=== PATIENT | female | born 1980 | race American Indian/Alaskan Native ===

== ENCOUNTER 2017-01-13 22:52 | Observation (INO) | payer BC ==
[2017-01-13] MEDS ORDERED: Aspirin 325 mg EC Tablets PO STA (23:38)
[2017-01-13] MEDS ORDERED: Aspirin 325 mg EC Tablets PO ONE (23:49)
[2017-01-14 00:20] LABS: BASO # 0.1 K/uL (0.0-0.2); BASO % 0.7 % (0.0-2.0); EOS # 0.1 K/uL (0.0-0.7); HEMATOCRIT 37.8 % (34.0-47.0); LYMPH # 2.5 K/uL (1.0-4.3); LYMPH % 28.4 % (20.0-40.0); MEAN CELL VOLUME 82.9 fL (81.0-99.0); MEAN CORPUSCULAR HEMOGLOBIN 27.2 pg (27.0-31.0); MEAN CORPUSCULAR HGB CONC 32.8 g/dL (33.0-37.0); MEAN PLATELET VOLUME 7.7 fL (7.2-11.7); MONO # 0.7 K/uL (0.0-0.8); MONO % 7.8 % (0.0-10.0); RED CELL DISTRIBUTION WIDTH 14.4 % (11.5-14.5); WHITE BLOOD COUNT 8.9 K/uL (4.8-10.8)
[2017-01-14 00:27] LABS: RBC URINE 9 /hpf (0-3); URINE BACTERIA OCC (<OCC); URINE BILIRUBIN NEGATIVE (NEGATIVE); URINE COLOR Yellow (YELLOW); URINE GLUCOSE (UA) NORMAL (Normal); URINE KETONE NEGATIVE (NEGATIVE); URINE PROTEIN NEGATIVE (NEGATIVE); URINE UROBILINOGEN NORMAL mg/dL (0.2-1.0); WBC URINE 4 /hpf (0-5)
--- NOTE | 2017-01-14 00:29 | C.PDOC ---
History Of Present Illness 36 year old female presents to the ED with complaints of vague dizziness, palpitations, and left arm discomfort since this afternoon. Patient notes she was seen in the ED for similar symptoms in March 2012 and denies cardiac history , chest pain, or any other complaints at this time. Time Seen by Provider: 01/13/17 23:33 Chief Complaint (Nursing): Dizziness/Lightheaded History Per: Patient History/Exam Limitations: no limitations Onset/Duration Of Symptoms: Hrs Current Symptoms Are (Timing): Still Present Seizure Or Post-ictal Symptoms: None Fall Associated With With Symptoms: No Severity: Mild Past Medical History Reviewed: Historical Data, Nursing Documentation, Vital Signs Vital Signs: Last Vital Signs Temp 97.9 F 01/14/17 16:04 Pulse 66 01/14/17 16:04 Resp 20 01/14/17 16:04 BP 108/71 01/14/17 16:04 Pulse Ox 94 L 01/14/17 16:04 - Medical History PMH: No Chronic Diseases Family History: States: Unknown Family Hx - Social History Hx Alcohol Use: No Hx Substance Use: No - Immunization History Hx Tetanus Toxoid Vaccination: No Hx Influenza Vaccination: No Hx Pneumococcal Vaccination: No Review Of Systems Except As Marked, All Systems Reviewed And Found Negative. Constitutional: Negative for: Fever, Chills Cardiovascular: Positive for: Palpitations. Negative for: Chest Pain Gastrointestinal: Negative for: Nausea, Vomiting Musculoskeletal: Positive for: Arm Pain (+Left arm discomfort) Neurological: Positive for: Dizziness. Negative for: Weakness, Numbness Physical Exam - Physical Exam Appears: Non-toxic, No Acute Distress, Other (+Obese) Skin: Normal Color, Warm, Dry Head: Atraumatic, Normacephalic Eye(s): bilateral: Normal Inspection Oral Mucosa: Moist Neck: Supple Chest: Symmetrical, No Deformity Cardiovascular: Rhythm Regular Respiratory: Normal Breath Sounds, No Accessory Muscle Use, No Rales, No Rhonchi , No Wheezing Extremity: Normal ROM, No Tenderness, No Deformity Neurological/Psych: Oriented x3, Normal Speech, Normal Cognition ED Course And Treatment - Laboratory Results Result Diagrams: 01/14/17 00:16 01/14/17 00:16 Lab Interpretation: Normal (bnp neg.) Urine POC: Negative ECG: Interpreted By Me ECG Rhythm: Sinus Rhythm ECG Interpretation: Normal Rate From EC O2 Sat by Pulse Oximetry: 100 (Nasal cannula ) Pulse Ox Interpretation: Normal - Radiology CXR: Interpreted by Me CXR Interpretation: Yes: Heart Size (+ megaly) Progress Note: CXR, EKG, Blood work, and Urinalysis ordered and reviewed. Patient treated with Aspirin and Lovenox. Reevaluation Time: 01:02 Reassessment Condition: Improved (asymptomatic.) - Physician Consult Information Outcome Of Conversation: 0100: d/w Dr. Pita Dooley- Medicine Staff Occupational Therapist- ok to Tele obs. Medical Decision Making Medical Decision Making: considering pt's obesity, vague chest discomforts and L arm radiation, cardiomegaly on CXR and family h/o mother's sudden @ pt's age 9 for ? reason, may be anginal equivalent- Lovenox SQ and Cardiac eval Disposition Doctor Will See Patient In The: Hospital Counseled Patient/Family Regarding: Studies Performed, Diagnosis - Disposition Disposition: HOSPITALIZED Disposition Time: 01:00 Condition: GOOD - Clinical Impression Clinical Impression: Chest discomfort, Dizziness - Scribe Statement The provider has reviewed the documentation as recorded by the Scribe Mariana Arias. Provider Attestation: All medical record entries made by the Scribe were at my direction and personally dictated by me. I have reviewed the chart and agree that the record accurately reflects my personal performance of the history, physical exam, medical decision making, and the department course for this patient. I have also personally directed, reviewed, and agree with the discharge instructions and disposition.
[2017-01-14 00:41] LABS: CHLORIDE 101 mmol/L (98-107); POTASSIUM 4.1 mmol/L (3.6-5.2); SODIUM 140 mmol/L (132-148)
[2017-01-14 00:41] LABS: URINE BLOOD 1+ (NEGATIVE); URINE LEUKOCYTE ESTERASE TRACE Leu/uL (Negative)
[2017-01-14 00:43] LABS: BILIRUBIN,TOTAL 0.4 mg/dL (0.2-1.3); GFR AFRICAN-AMERICAN > 60
[2017-01-14 00:44] LABS: ALB/GLOB RATIO 1.2 (1.0-2.1); ALKALINE PHOSPHATASE 91 U/L (38-126); ALT/SGPT 31 U/L (9-52); AST/SGOT 42 U/L (14-36); BLOOD UREA NITROGEN 10 mg/dL (7-17); CALCIUM 8.7 mg/dl (8.6-10.4); CARBON DIOXIDE 28 mmol/L (22-30); GLUCOSE,RANDOM 88 mg/dL (65-105); TOTAL PROTEIN 7.9 g/dL (6.3-8.3)
[2017-01-14 00:45] LABS: ALCOHOL SERUM < 10 mg/dl (0-10)
[2017-01-14] MEDS ORDERED: Enoxaparin 40 mg Syringe SC STA (00:56)
[2017-01-14] MEDS ORDERED: Enoxaparin 40 mg Syringe ONE (02:10)
[2017-01-14] MEDS ORDERED: Enoxaparin 60 mg Syringe ONE (02:10)
[2017-01-14] MEDS ORDERED: Albuterol-Ipratrop 3 mg / 0.5 (3 ml) UD ONE (02:44)
[2017-01-14] MEDS: Albuterol-Ipratrop 3 mg / 0.5 (3 ml) UD INH SCH ×3 (02:50→13:37)
[2017-01-14] MEDS ORDERED: Pantoprazole 40 mg EC Tab PO SCH (10:00)
--- NOTE | 2017-01-14 11:17 | RAD ---
HISTORY: SOB COMPARISON: None available. TECHNIQUE: Chest, one view. FINDINGS: Examination limited by habitus and hypoinflation. LUNGS: No focal consolidation. Please note that chest x-ray has limited sensitivity for the detection of pulmonary masses. PLEURA: No significant pleural effusion identified. No definite pneumothorax . CARDIOVASCULAR: The cardiomediastinal silhouette appears within normal limits of size. OSSEOUS STRUCTURES: No acute osseous abnormality identified. VISUALIZED UPPER ABDOMEN: Unremarkable. OTHER FINDINGS: None. IMPRESSION: No focal consolidation, significant pleural effusion, or definite pneumothorax identified.
--- NOTE | 2017-01-14 11:53 | CP.PCM.PN ---
<Nhung Ferro - Last Filed: 01/14/17 15:12> Subjective - Date & Time of Evaluation Date of Evaluation: 01/14/17 Time of Evaluation: 11:46 - Subjective Subjective: Medicine Progress Note- Dr Amalia Dooley's service Patient seen and examined. Patient states that she came to the hospital yesterday because while she was at work she felt lightheaded and felt tingling and numbness in her lateral right hand. She states that she became concerned about the numbness so she came to the ED. Per patient, she has had this numbness in her pinky finger before. She was standing at the time of the event. Denies chest pain, shortness of breath, headache, change in vision, focal weakness, syncope, memory loss, tinnitus, sore throat, recent illness, new medications, swelling, back pain, recent trauma, palpitations, abdominal pain. Objective - Vital Signs/Intake and Output Vital Signs (last 24 hours): Temp Pulse Resp BP Pulse Ox 98.5 F 68 17 111/72 100 01/14/17 07:10 01/14/17 08:00 01/14/17 07:10 01/14/17 07:10 01/14/17 07:10 - Medications Medications: Current Medications Albuterol/Ipratropium (Duoneb 3 Mg/0.5 Mg (3 Ml) Ud) 3 ml INH RQ6 [facility] Last Admin: 01/14/17 07:52 Dose: 3 ml Aspirin (Aspirin) 325 mg PO DAILY [facility] Last Admin: 01/14/17 09:34 Dose: 325 mg Clopidogrel Bisulfate (Plavix) 75 mg PO DAILY [facility] Last Admin: 01/14/17 09:34 Dose: 75 mg Enoxaparin Sodium (Lovenox) 40 mg SC DAILY [facility] Ondansetron HCl (Zofran Inj) 4 mg IVP Q6 PRN PRN Reason: Nausea/Vomiting Pantoprazole Sodium (Protonix Ec Tab) 40 mg PO DAILY [facility] Last Admin: 01/14/17 09:34 Dose: 40 mg Pneumococcal Polyvalent Vaccine (Pneumovax 23 Vaccine) 0.5 ml IM .ONCE ONE Stop: 01/17/17 14:01 - Constitutional Appears: Non-toxic, No Acute Distress - Head Exam Head Exam: ATRAUMATIC, NORMOCEPHALIC - Eye Exam Eye Exam: EOMI, Normal appearance - ENT Exam ENT Exam: Mucous Membranes Moist - Neck Exam Neck Exam: Normal Inspection - Respiratory Exam Respiratory Exam: Clear to Ausculation Bilateral, NORMAL BREATHING PATTERN. absent: Rales, Rhonchi, Wheezes, Respiratory Distress - Cardiovascular Exam Cardiovascular Exam: REGULAR RHYTHM, +S1, +S2 - GI/Abdominal Exam GI & Abdominal Exam: Soft, Normal Bowel Sounds. absent: Firm, Guarding, Rigid, Tenderness - Extremities Exam Extremities Exam: Normal Inspection. absent: Pedal Edema - Back Exam Back Exam: NORMAL INSPECTION - Neurological Exam Neurological Exam: Alert, Awake, CN II-XII Intact, Oriented x3 Neuro motor strength exam: Left Upper Extremity: 5, Right Upper Extremity: 5, Left Lower Extremity: 5, Right Lower Extremity: 5 Additional comments: Decreased sensation to touch of left pinky - Psychiatric Exam Psychiatric exam: Normal Affect, Normal Mood - Skin Skin Exam: Dry, Intact, Normal Color, Warm Assessment and Plan - Assessment and Plan (Free Text) Assessment: (1) Numbness ROMIs negative x2 f/u 3rd SAROJ No EKG changes Consulted Dr Pedersen cardio for recommendations Consulted Dr Ziegler Neuro for recommendations f/u Head CT without contrast HgA1C 5.9 TSH 0.89 ASA 325mg PO daily, Plavix 75mg PO daily (2) HLD TG 85 Cholesterol 226 LDL 149 HDL 33 Crestor 10mg PO HS (3) Hx asthma Duonebs 3ml INH q6h Controlled (4) Prophylactic measures Protonix 40mg PO daily Lovenox 40mg SC daily SCDs Discussed with attending. <Ashlee Dooley S - Last Filed: 05/06/17 22:47> Objective - Vital Signs/Intake and Output Vital Signs (last 24 hours): Temp Pulse Resp BP Pulse Ox 97.9 F 66 20 108/71 100 01/14/17 16:04 01/14/17 16:04 01/14/17 16:04 01/14/17 16:04 01/19/17 18:25 Assessment and Plan (1) Chest discomfort Status: Acute (2) Dizziness Status: Acute Attending/Attestation - Attestation I have personally seen and examined this patient.: Yes I have fully participated in the care of the patient.: Yes Notes (Text): Admitted with the numbness seen and discussed with the staff and resident management as discussed
[2017-01-14 14:39] LABS: THYROID STIMULATING HORMONE 0.89 mIU/L (0.46-4.68)
[2017-01-14 16:05] VITALS: BP 108/71; PULSE 66; RESP 20; TEMP 97.9
--- NOTE | 2017-01-14 16:37 | CT ---
PROCEDURE: CT HEAD WITHOUT CONTRAST. HISTORY: numbness/tingling COMPARISON: None available. TECHNIQUE: Axial computed tomography images were obtained through the head/brain without intravenous contrast. Radiation dose: Total exam DLP = 1042.96 mGy-cm. This CT exam was performed using one or more of the following dose reduction techniques: Automated exposure control, adjustment of the mA and/or kV according to patient size, and/or use of iterative reconstruction technique. FINDINGS: HEMORRHAGE: No intracranial hemorrhage. BRAIN: No mass effect or edema. No atrophy or chronic microvascular ischemic changes. VENTRICLES: Unremarkable. No hydrocephalus. CALVARIUM: Unremarkable. PARANASAL SINUSES: Unremarkable as visualized. No significant inflammatory changes. MASTOID AIR CELLS: Unremarkable as visualized. No inflammatory changes. OTHER FINDINGS: None. IMPRESSION: Normal CT of the Head. No intracranial mass, hemorrhage or evidence of acute infarct.
--- NOTE | 2017-01-14 16:49 | CARD ---
APPROVED REPORT EKG Measurement Heart [id number] <Conclusion> Normal sinus rhythm Normal ECG
--- NOTE | 2017-01-14 18:07 | CP.PCM.HP ---
History of Present Illness - History of Present Illness History of Present Illness: 36 years old female patient presented with complaints of patient, left arm discomfort, dizziness. Patient had similar symptoms about 5 yesrs back no Chest pain, palpitations, shortness of breath No leg swelling in ED, blood workup, ekg, CXR done, started on aspirin, lovenox admitted and kept on telemetry Present on Admission - Present on Admission Any Indicators Present on Admission: No Past Patient History - Past Medical History & Family History Past Medical History?: Yes - Past Social History Smoking Status: Never Smoked - CARDIAC Hx Cardiac Disorders: No - PULMONARY Hx Respiratory Disorders: Yes Hx Asthma: Yes - NEUROLOGICAL Hx Neurological Disorder: No - HEENT Hx HEENT Problems: No - RENAL Hx Chronic Kidney Disease: No - ENDOCRINE/METABOLIC Hx Endocrine Disorders: No - HEMATOLOGICAL/ONCOLOGICAL Hx Blood Disorders: No - INTEGUMENTARY Hx Dermatological Problems: No - MUSCULOSKELETAL/RHEUMATOLOGICAL Hx Musculoskeletal Disorders: No Hx Falls: No - GASTROINTESTINAL Hx Gastrointestinal Disorders: No - GENITOURINARY/GYNECOLOGICAL Hx Genitourinary Disorders: No - PSYCHIATRIC Hx Psychophysiologic Disorder: No Hx Substance Use: No - SURGICAL HISTORY Hx Surgeries: Yes Hx Section: Yes Other/Comment: Claimed had Endometriosis and had surgery done a long time ago. that she can't remember what the name of the surgery was - ANESTHESIA Hx Anesthesia: Yes Hx Anesthesia Reactions: No Hx Malignant Hyperthermia: No Has any member of the family had a problem w/ anesthesia?: No Meds Allergies/Adverse Reactions: Allergies Allergy/AdvReac Type Severity Reaction Status Date / Time No Known Allergies Allergy Verified 01/14/17 03:43 Physical Exam - Constitutional Appears: Well - Head Exam Head Exam: ATRAUMATIC, NORMAL INSPECTION, NORMOCEPHALIC - Eye Exam Eye Exam: EOMI, Normal appearance, PERRL Pupil Exam: NORMAL ACCOMODATION, PERRL - ENT Exam ENT Exam: Mucous Membranes Moist, Normal Exam - Neck Exam Neck exam: Positive for: Normal Inspection - Respiratory Exam Respiratory Exam: Decreased Breath Sounds - Cardiovascular Exam Cardiovascular Exam: REGULAR RHYTHM, +S1, +S2 - GI/Abdominal Exam GI & Abdominal Exam: Diminished Bowel Sounds, Soft - Rectal Exam Rectal Exam: Deferred Results - Vital Signs Recent Vital Signs: Last Vital Signs Temp 97.9 F 01/14/17 16:04 Pulse 66 01/14/17 16:04 Resp 20 01/14/17 16:04 BP 108/71 01/14/17 16:04 Pulse Ox 94 L 01/14/17 16:04 - Labs Result Diagrams: 01/14/17 00:16 01/14/17 00:16 Labs: Laboratory Results - last 24 hr 01/14/17 01/14/17 08:17 13:49 Hemoglobin A1c 5.9 Total Creatine Kinase 617 H CK-MB (Mass) 0.46 Troponin I, Quant < 0.0120 Triglycerides 85 Cholesterol 226 H LDL Cholesterol Direct 149 H HDL Cholesterol 33 TSH 3rd Generation 0.89 Assessment & Plan (1) Chest discomfort Status: Acute (2) Dizziness Status: Acute - Assessment and Plan (Free Text) Plan: labs and meds reviewed telemetry cardio consult Dr Ziegler CT head w/o contrast noted duoneb lovenox aspirin clopidogrel zofran
--- NOTE | 2017-01-14 20:24 | CON ---
DATE: 01/14/2017 HISTORY OF PRESENT ILLNESS: A 36-year-old black female with past medical history of asthma, came her e with the complaint of dizziness, palpitations, left arm discomfort and numbness of the left hand. No headache, no neck pain, no weakness, no dizziness, no double vision. I was called to evaluate the patient. PAST MEDICAL HISTORY: Asthma. SOCIAL HISTORY: Does not smoke and does not drink. REVIEW OF SYSTEMS: A 10-point review of system was negative except as noted above. PHYSICAL EXAMINATION: VITAL SIGNS: Blood pressure 116/77. HEENT: Normocephalic and atraumatic. NECK: Supple. NEUROLOGIC: Alert, awake, oriented x 3. No aphasia. Cranial nerves II through XII were tested. Pu pils reactive. EOMs intact. Visual mosley full. No facial asymmetry. Tongue midline. Motor exami nation: Moves all the extremities equally. Tone normal. Deep tendon reflexes 1+. Both plantars ar e downgoing. Sensory appears intact. Cerebellar, gait normal. IMPRESSION: Lightheadedness and presyncopal episode with dizziness. CAT scan of the head was done, which was reported negative. LABORATORY: WBC 8.9, hemoglobin 12.4, hematocrit 37.8, platelets 327. Sodium 140, potassium 4.1, ch loride 101, CO2 of 28, glucose 88, BUN 10, creatinine 0.8. PLAN: Continue present medications, aspirin. We will follow up. Levar Ziegler MD cc: [id number] TT: 01/14/2017 20:23:35 Confirmation # [id number] Dictation # [id number] brandy
[2017-01-14] MEDS ORDERED: Enoxaparin 40 mg Syringe SC SCH (22:00)
[2017-01-17] MEDS ORDERED: Pneumococcal 23-Valent Vaccine IM ONE (14:00)
[2017-01-19 18:26] VITALS: O2SAT 100
== END 2017-01-14 18:00 | disposition home or self-care (01) ==
LOC: C.ER 22:52 → C.9E 01-14 00:58 → C.6T 01-14 02:52
PROVIDERS: ADMIT Internal Medicine Nephrology; ATTEND Internal Medicine Nephrology
DX: R07.89 Other chest pain (principal); R42 Dizziness and giddiness; J45.909 Unspecified asthma, uncomplicated; E78.5 Hyperlipidemia, unspecified; R20.0 Anesthesia of skin
CPT/HCPCS: 70450; 71010; 80053; 80061; 81001; 83036; 83880; 84443; 84484; 84703; 85025; 93005; 94640; 96372; 99285; G0378; G0480; J1650

== ENCOUNTER 2019-02-12 10:43 | Emergency (ER) | payer BC ==
[2019-02-12 10:50] VITALS: RESP 16
--- NOTE | 2019-02-12 12:43 | C.PDOC ---
History Of Present Illness 38 year old female presents to ED with complaint of pain along her anterior chest pain since yesterday. Patient states that she woke up yesterday feeling pain along her chest. She states that the pain is worse with movement. Patient denies any trauma, SOB, nausea, vomiting, rash, or fever. Time Seen by Provider: 02/12/19 11:16 Chief Complaint (Nursing): Chest Pain History Per: Patient History/Exam Limitations: no limitations Onset/Duration Of Symptoms: Days (1) Current Symptoms Are (Timing): Still Present Quality: "Pain" Associated Symptoms: denies: Nausea, Dyspnea, Diaphoresis Exacerbating Factors: Movement Past Medical History Reviewed: Historical Data, Nursing Documentation, Vital Signs Vital Signs: Last Vital Signs Temp 98.2 F 02/12/19 10:47 Pulse 76 02/12/19 10:47 Resp 16 02/12/19 10:47 BP 111/73 02/12/19 10:47 Pulse Ox 99 02/12/19 10:47 Primary Care Provider: Nicholas Shin Surg - Medical History PMH: Denies: Asthma (DENIES 02/12/19), Chronic Kidney Disease Surgical History: No Surg Hx Family History: States: Unknown Family Hx - Social History Hx Alcohol Use: No Hx Substance Use: No - Immunization History Hx Tetanus Toxoid Vaccination: No Hx Influenza Vaccination: No Hx Pneumococcal Vaccination: No Review Of Systems Constitutional: Negative for: Fever Cardiovascular: Positive for: Chest Pain Respiratory: Negative for: Cough, Shortness of Breath Gastrointestinal: Negative for: Nausea, Vomiting Skin: Negative for: Rash Physical Exam - Physical Exam Appears: Well, Non-toxic, No Acute Distress Skin: Normal Color, Warm, Dry Head: Atraumatic, Normacephalic Neck: Normal ROM, Supple Chest: Symmetrical, No Deformity, Tenderness (anterior chest wall tenderness) Cardiovascular: Rhythm Regular, No Friction Rub, No Murmur Respiratory: No Accessory Muscle Use, No Rales, No Rhonchi, No Wheezing Gastrointestinal/Abdominal: Soft, No Tenderness, No Distention Extremity: No Calf Tenderness, Capillary Refill (<2 seconds), No Swelling Neurological/Psych: Oriented x3, Normal Speech, Normal Cognition ED Course And Treatment ECG: Interpreted By Me, Viewed By Me ECG Rhythm: Sinus Rhythm ECG Interpretation: Normal Interpretation Of ECG: Normal axis. Rate From EC O2 Sat by Pulse Oximetry: 99 (in RA) Pulse Ox Interpretation: Normal - Radiology CXR: Interpreted by Me CXR Interpretation: Yes: No Acute Disease. No: Infiltrates Medical Decision Making Medical Decision Making: Initial Plan: CXR POC urine Motrin PO On re-exam, the patient is resting comfortably. Lungs are CTA, heart is RRR, abdomen is soft, non-tender and tolerating PO well. ambulatory in the ED with steady gait. Follow up with the medical doctor within 1-2 days. Return if worsened. Disposition - Disposition Referrals: [facility] [Outside] Disposition: HOME/ ROUTINE Disposition Time: 13:22 Condition: GOOD Additional Instructions: Follow up with the medical doctor within 1-2 days. Return if worsened. Prescriptions: Naproxen [Naprosyn] 500 mg PO BID #20 tab Instructions: Costochondritis (DC) Forms: [employer] (Ugandan) - Clinical Impression Clinical Impression: Chest discomfort, Costochondritis - PA / JOURNEYMAN MILLWRIGHT / Resident Statement MD/DO has reviewed & agrees with the documentation as recorded. (Loren Christianson) - Scribe Statement The provider has reviewed the documentation as recorded by the Scribe (Loren Christianson) All medical record entries made by the Scribe were at my direction and personally dictated by me. I have reviewed the chart and agree that the record accurately reflects my personal performance of the history, physical exam, medical decision making, and the department course for this patient. I have also personally directed, reviewed, and agree with the discharge instructions and disposition.
[2019-02-12 13:05] VITALS: BP 114/68; PULSE 78; TEMP 98.4
[2019-02-12 13:36] VITALS: O2SAT 99
--- NOTE | 2019-02-12 15:12 | RAD ---
Date of service: 02/12/2019 HISTORY: pleuritic chest pain COMPARISON: Comparison is made with 01/13/2017 TECHNIQUE: Chest PA and lateral views FINDINGS: LUNGS: No active pulmonary disease. PLEURA: No significant pleural effusion identified. No pneumothorax apparent. CARDIOVASCULAR: No aortic atherosclerotic calcification present. Normal cardiac size. No pulmonary vascular congestion. OSSEOUS STRUCTURES: No significant abnormalities. VISUALIZED UPPER ABDOMEN: Normal. OTHER FINDINGS: None. IMPRESSION: No active disease.
--- NOTE | 2019-02-14 19:49 | CARD ---
APPROVED REPORT Date of service: 02/12/2019 EKG Measurement Heart [id number] <Conclusion> Normal sinus rhythm Cannot rule out Anterior infarct, age undetermined Abnormal ECG
== END 2019-02-12 13:48 | disposition home or self-care (01) ==
LOC: C.ER 10:43
DX: M94.0 Chondrocostal junction syndrome [Tietze] (principal); R07.89 Other chest pain